=== PATIENT | male | born 1985 | race African-American/Black ===

== ENCOUNTER 2016-03-30 09:06 | Emergency (ER) | payer OTHER ==
[~2016-03-30] VITALS: Ht 167.6 cm; Wt 86.2 kg
[2016-03-30] MEDS ORDERED: TESSALON PERLE100 MG PO (09:38)
[2016-03-30] MEDS ORDERED: IBUPROFEN 600600 M1 PO (09:38)
[2016-03-30 10:20] VITALS: BP 132/88
== END 2016-03-30 10:38 | disposition home or self-care (01) ==
LOC: ER 09:06
DX: J06.9 Acute upper respiratory infection, unspecified (principal); R05 Cough; F17.210 Nicotine dependence, cigarettes, uncomplicated; Z72.0 Tobacco use